=== PATIENT | female | born 1950 | race Two or more races ===

== ENCOUNTER 2025-09-02 11:08 | Emergency (ER) | payer MEDICARE, SELFPAY ==
[2025-09-02 11:29] VITALS: BP 122/72; PULSE 66; TEMP 36.8; O2SAT 98; BMI 27.8
--- OUTSIDE RECORDS SUMMARY | 2025-09-02 11:31 | XMS_ITS | Clinical Summary ---
Author Organization [facility] Healthcare Address [address] [place] [address] Care Team Providers Care Code Official Name Role Phone Wilder Aerllano MD Primary Care Provider + [phone] Allergies Active AllergyReactionsCriticalityNoted DateCommentsHydrocodone-AcetaminophenGI venlvnwezzy55/02/2024MorphineGI intolerance,GqgeGcxn87/29/2012 Dizziness, syncope ByclaeslgksFffeost31/19/2020 Medications MedicationSigDispense QuantityRefillsLast FilledStart DateEnd DateStatus levothyroxine (Synthroid, Levoxyl) 50 MCG tablet Active alendronate (Fosamax) 70 MG tablet Indications:Osteopenia of spineTAKE 1 (ONE) TABLET BY MOUTH WEEKLY 12 tablet 5Active Cyanocobalamin (VITAMIN B-12 IJ) Inject as directedActive Multiple Vitamin (multivitamin) tablet Take 1 tablet by mouth DailyActive Active Problems No known active problems Encounters DateTypeDepartmentCare HzogChmranljrgq52/26/2025 8:45 AM EDTOffice Visit [facility] [address] [place] [address] Samina Mackey, DPMoise Pain of toe of right foot (Primary Dx); Hammer toe of right foot; Nulbzq0206/08/2025amboo flowsheet [facility] [address] [place] [address] Samina Mackey DPMoise 06/08/20254906Uiwbox96/25/2025Travelfrom Last 3 Months Family History Medical KteagmuYuatsbzjMkeaKajmxilfNieilsDijkeofelvrpKzloawJxhiuore2Ktxvuzig ChildHypertensionChildHeart diseaseFatherHyperlipidemiaFatherCancerSiblingCancer SisterNeckRelationNameStatusCommentsBrotherChildFatherDeceasedMotherDeceased SiblingSister Social History Tobacco UseTypesPacks/DayYears UsedDateSmoking Tobacco: Some CpqfRajktlnnoq801.4 Started: 04/14/1974Passive Smoke Exposure: PastSmokeless Tobacco: Never Comments:5 cigs a week Alcohol UseStandard Drinks/WeekCommentsYes0 (1 standard drink = 0.6 oz pure alcohol)5 a weekCommentsUnknownSex and Gender InformationValueDate RecordedSex Assigned at BirthNot on fileLegal WzsOszrrk35/15/2023 6:47 PM EDT Gender IdentityNot on fileSexual OrientationNot on file Last Filed Vital Signs Vital SignReadingTime TakenCommentsBlood Dwcquuyn156/8007 1:39 PM EDT Ouuyd7828 1:39 PM EDTTemperature--Respiratory Rate--Oxygen Saturation-- Inhaled Oxygen Concentration--Qtbsjo46.1 kg (148 lb)06/08/2025 8:53 AM EDTHeight 154.9 cm (5' 1 )06/08/2025 8:53 AM EDTBody Mass Index27.9608 8:53 AM EDT Plan of Treatment Health MaintenanceDue DateLast DoneCommentsCT Pfcwckmsylix93/12/1953Colonoscopy 3Colorectal Cancer Nobqkmhbj15/12/1953FIT-DNA1952FIT1952 FOBT1952 2709Uzwpnmvytxbdq22/12/1953Pneumococcal Vaccine: 65+ Years (2 of 2 - PCV)COVID-19 Vaccine ( - 2024- season)2025 08/17/2024, 08/15/2022, 08/16/2021, Additional history existsInfluenza Vaccine (#1), 07/31/2023, 09/18/2022, Additional history exists Fgvkxmffi97/27/38718001/07/2025, 09/26/2023, 06/14/2022, Additional history exists Insurance Care Teams Team MemberRelationshipSpecialtyStart DateEnd Date Wilder Arellano MD [address] [facility], [facility] [place] [address] PCP - GeneralFamily Medicine04/14/24
[2025-09-02 13:59] VITALS: BP 130/66; PULSE 64; O2SAT 98
--- NOTE | 2025-09-02 14:05 | CT_ITS ---
The [address] [address] Patient Name: RAO MARTINEZ MRN: [id number] date: 1950 Sex: F Assigned Patient Location: ED.MAIN Current Patient Location: ED.MAIN Accession/Order Number: [id number] Exam Date: 09/02/2025 14:30 Report Date: 09/02/2025 14:53 At the request of: ОЛЬГА BUSCH MD Procedure: CT head/brain wo con CT BRAIN WITHOUT CONTRAST: CLINICAL HISTORY: Head injury, right sided pain COMPARISON: None TECHNIQUE: Contiguous axial unenhanced images were obtained through the brain. This CT exam was performed using one or more following dose reduction techniques: Automated exposure control, adjustment of the mA and/or kV according to patient size, or use of iterative reconstruction technique. FINDINGS: There is no evidence of midline shift, intra or extra-axial fluid collection, hemorrhage or CT evidence of stroke. Cortical atrophy with chronic microvascular ischemic changes. Posterior fossa appears unremarkable. Visualized intraorbital contents demonstrate no acute findings. Visualized paranasal sinuses are clear. The surrounding soft tissues are normal. CT/CT head/brain wo con IMPRESSION: NO ACUTE INTRACRANIAL ABNORMALITY. Impression dictated by: Stephen Wills Jr., D.O. 09/02/2025 2:53 PM Dictation Location: [place] [address] Electronically authenticated by: [id number] Y Date: 09/02/2025 14:53
--- NOTE | 2025-09-02 14:06 | ED_ITS ---
HPI HPI - General Adult General Chief complaint: Headache Stated complaint: HEAD INJURY - FALL END OF JULY Time Seen by Provider: 09/02/25 13:50 Source: patient Mode of arrival: walk-in Limitations: no limitations History of Present Illness HPI narrative: 74-year-old female presents for pain on the right side of her head. She had fallen about 3-1/2 weeks ago and hit the right side of her head. At that time she was seen at another hospital had 2 stitches placed in her scalp. She has had those stitches removed. She continues to have headaches and it was bad last night so she came in today because she did not have a ride last night. She has been taking Tylenol. Related Data Home Medications ?Medication ?Instructions ?Recorded ?Confirmed alendronate 70 mg tablet mg PO 09/02/25 levothyroxine 50 mcg tablet mcg 09/02/25 rosuvastatin 10 mg tablet mg 09/02/25 Previous Rx's ?Medication ?Instructions ?Recorded zkkohfhpvm-gscruzozcmxte-caojjnis 1 cap PO Q6H PRN pino n 5 days #20 09/02/25 50 mg-300 mg-40 mg capsule caps (Fioricet) Allergies Allergy/AdvReac Type Severity Reaction Status Date / Time acetaminophen (From Vicodin) Allergy Dizziness Verified 09/02/25 11:33 hydrocodone (From Vicodin) Allergy Dizziness Verified 09/02/25 11:33 morphine AdvReac Dizziness Verified 09/02/25 11:33 Opioid HPI Opioid Management Most Recent Opioid Data: Last Pain Scale 6 Today, 14:02 Review of Systems ROS Narrative A ten point review of systems is negative except as noted above. PFSH PFSH Social History Little interest or pleasure in doing things: not at all Feeling down, depressed, or hopeless: not at all Exam Narrative Exam Narrative: Nurses note and vital signs reviewed General:The patient appears well and in no apparent distress.Patient is resting comfortably on cart. Skin:Warm, dry, no pallor noted.There is no rash noted. Head:Normocephalic, atraumatic: No hematoma or laceration or bruising is present on her scalp. No erythema. Eye: Normal conjunctiva, no drainage Ears, Nose, Mouth, and Throat: oral mucosa is moist. Nares patent. Cardiovascular:Regular Rate and Rhythm Respiratory:Patient is in no distress, no accessory muscle use, lungs are clear to auscultation, no wheezing, rales or rhonchi Back:non-tender GI: Nontender soft Musculoskeletal: The patient has no evidence of calf tenderness, no pitting edema, symmetrical pulses noted bilaterally Neurological:A&O, normal speech Psychiatric:Cooperative Constitutional Vital Signs, click to edit/add: Last Vital Signs Temp 98.2 F 09/02/25 11:29 Pulse 64 09/02/25 13:59 Resp 16 09/02/25 13:59 BP 130/66 09/02/25 13:59 Pulse Ox 98 09/02/25 13:59 O2 Del Method Room Air 09/02/25 13:59 Course Vital Signs Vital signs: Vital Signs Temperature 98.2 F 09/02/25 11:29 Pulse Rate 66 09/02/25 11:29 Respiratory Rate 16 09/02/25 11:29 Blood Pressure 122/72 09/02/25 11:29 Pulse Oximetry 98 09/02/25 11:29 Oxygen Delivery Method Room Air 09/02/25 11:29 Temperature 98.2 F 09/02/25 11:29 Pulse Rate 64 09/02/25 13:59 Respiratory Rate 16 09/02/25 13:59 Blood Pressure 130/66 09/02/25 13:59 Pulse Oximetry 98 09/02/25 13:59 Oxygen Delivery Method Room Air 09/02/25 13:59 Medical Decision Making MDM Narrative Medical decision making narrative: CT scan is negative. She will be prescribed Fioricet and discharged home. No evidence of cranial injury I have no concern for meningitis. Treatment diagnosis and follow-up were discussed with the patient. Differential Diagnosis Differential Diagnosis: Contusion, intracranial hemorrhage, meningitis Imaging Data CT scan - head: Radiologist's impression: ITS Impressions Head CT 09/02/25 14:05 IMPRESSION: NO ACUTE INTRACRANIAL ABNORMALITY. Impression dictated by: Stephen Wills Jr., D.O. 09/02/2025 2:53 PM Dictation Location: [place] [address] Electronically authenticated by: [id number] Y Date: 09/02/2025 14:53 Discharge Plan Discharge Chief Complaint: Headache Clinical Impression: Headache Patient Disposition: Home, Self-Care Time of Disposition Decision: 15:03 Condition: Good Mode of Transportation: Private Vehicle Prescriptions / Home Meds: New tjineshwxs-mlkurbiawflnm-vxos [Fioricet] 50-300-40 mg capsule 1 cap PO Q6H PRN (Reason: pain) 5 Days Qty: 20 0RF No Action alendronate 70 mg tablet PO levothyroxine 50 mcg tablet rosuvastatin 10 mg tablet Print Language: Brazilian Instructions: Acute Headache (ED) Referrals: BRUCE MOSES [Primary Care Provider, Family Practice] - 1 week
== END 2025-09-02 15:18 | disposition home or self-care (01) ==
PROVIDERS: Emergency Provider Emergency Medicine; PCP Family Medicine
DX: R51.9 Headache, unspecified (principal)
CPT/HCPCS: 70450; 99284